=== PATIENT | male | born 1975 | race Two or more races ===

== ENCOUNTER 2021-06-22 16:27 | Emergency (ER) | payer OTHER ==
[~2021-06-22] VITALS: Ht 190.5 cm; Wt 108.9 kg
[2021-06-22] MEDS ORDERED: PEPCID AC20 MG PO (22:10)
[2021-06-22] MEDS ORDERED: LEVSIN/SL0.125 MG PO (22:10)
== END 2021-06-22 22:12 ==
LOC: ER 16:27
DX: R10.12 Left upper quadrant pain (principal); R07.9 Chest pain, unspecified

== ENCOUNTER 2025-02-06 20:47 | Inpatient (IN) | payer OTHER ==
[~2025-02-06] VITALS: Ht 180.3 cm; Wt 84.8 kg
[~2025-02-06 20:47] MED LIST: LEVSIN/SL0.125 MG PO; PEPCID AC20 MG PO
--- NOTE | 2025-02-06 21:15 | NUR ---
SE RECIBE PTE ALERTA, ORIENTADO X3 Y AMBULANDO. PTE REFIERE DOLOR DE PECHO, SE REALIZA EKG Y SE PRESENTA DR. BELLE LA CUAL INDICA UBICAR EN PASILLO. SE MIDEN S/V Y SE UBICA.
[2025-02-06] MEDS ORDERED: NITROGLYCERIN 0.4 MG TAB.SUBL SL ONE (21:30)
[2025-02-06 21:44] LABS: BASO % 0.5 % (0.1-1.2); EOS # 0.10 (0.04-0.54); EOS % 1.3 % (0.7-7.0); LYMPH # 2.00 (1.18-3.74); LYMPH % 27.0 % (19.3-53.1); MEAN PLATELET VOLUME 9.90 fl (9.4-12.4); MONO # 0.63 (0.24-0.82); MONO % 8.5 % (4.7-12.5); NEUT # 4.63 (1.56-6.13); NEUT % 62.4 % (34.0-71.1); RED CELL DISTRIBUTION WIDTH 11.9 % (11.6-14.4)
[2025-02-06 22:03] LABS: GLUCOSE FASTING 105.0 mg/dL (65-100); OSMOLALITY SERUM 283.0 MOSM/KG (275-295)
[2025-02-06 22:04] LABS: INR 1.05
--- NOTE | 2025-02-06 22:06 | NUR ---
SE ORIENTA A PTE SOBRE TX MEDICO ORDENADO POR . SE REALIZA RUDDY DE MUESTRAS DE LAB KEILA ORDEN MEDICA Y BAJO MEDIDAS ASEPTICAS. VENOPUNCION PATENTE THIEN DE EDEMA Y ERITEMA EN H/L. SE NOTIFICA ESTUDIO ORDENADO.
[2025-02-06 22:09] LABS: ALT/SGPT 35.0 U/L (12-78); AST/SGOT 17.0 U/L (15-37); BILIRUBIN TOTAL 0.61 mg/dL (0.3-1.2); BUN CREA RATIO 16.0 (7.0-25.0); CREATININE SERUM 1.0 mg/dL (0.70-1.30); GFR 80.09; GLOBULINA 3.4 G/DL (2.4-3.5)
[2025-02-07] MEDS ORDERED: 0.9 % SODIUM CHLORIDE 1,000 ML IV SCH (07:45)
[2025-02-07] MEDS ORDERED: NITROGLYCERIN IN 5 % DEXTROSE 250 ML IV SCH (08:00)
[2025-02-07] MEDS ORDERED: ASPIRIN 325 MG TABLET PO SCH (09:00)
[2025-02-07] MEDS ORDERED: LOSARTAN POTASSIUM 50 MG TABLET PO SCH (09:00)
[2025-02-07] MEDS ORDERED: ENOXAPARIN SODIUM 80 MG/0.8 ML SYRINGE SUBCUTANEO SCH (09:00)
[2025-02-07] MEDS ORDERED: METOPROLOL SUCCINATE 25 MG TAB.SR.24H PO SCH (09:00)
[2025-02-07] MEDS ORDERED: ATORVASTATIN CALCIUM 40 MG TABLET PO SCH (09:00)
[2025-02-07 10:00] VITALS: BP 128/81
[2025-02-07 13:48] VITALS: BP 122/70; O2SAT 95
[2025-02-07 14:03] VITALS: O2SAT 98
[2025-02-07 16:54] VITALS: O2SAT 99
[2025-02-07 18:24] VITALS: BP 125/77; O2SAT 97
[2025-02-07 21:20] VITALS: O2SAT 90
[2025-02-08 00:24] VITALS: O2SAT 96
[2025-02-08 02:23] VITALS: BP 123/84; O2SAT 97
[2025-02-08 07:00] VITALS: BP 166/77; O2SAT 98
[2025-02-08 09:13] VITALS: O2SAT 96
[2025-02-08 13:47] VITALS: O2SAT 90
== END 2025-02-08 15:00 | disposition home or self-care (01) | DRG 311 ==
LOC: ER → SURG 02-07 10:34 → SURH 02-07 11:06
PROVIDERS: General Practice; ADMIT Internal Medicine; ATTEND Internal Medicine
PROC: 4A12X4Z Monitoring of Cardiac Electrical Activity, External Approach (ICD-10-PCS; principal; 2025-02-07)
PROC: B246ZZZ Ultrasonography of Right and Left Heart (ICD-10-PCS; 2025-02-07)
DX: I20.89 Other forms of angina pectoris (principal); R07.89 Other chest pain; R10.12 Left upper quadrant pain